=== PATIENT | female | born 1940 | race Caucasian/White ===

== ENCOUNTER 2019-11-30 14:25 | Emergency (ER) | payer OTHER ==
[~2019-11-30] VITALS: Ht 162.6 cm; Wt 51.3 kg
[2019-11-30] MEDS ORDERED: NAPROXEN375 MG PO (15:49)
[2019-11-30] MEDS ORDERED: TRAMADOL 50 MG50 MG PO (15:49)
[2019-11-30 16:25] VITALS: BP 136/69
== END 2019-11-30 16:27 | disposition home or self-care (01) ==
LOC: ER 14:25
DX: S93.402A Sprain of unspecified ligament of left ankle, initial encounter (principal); M18.12 Unilateral primary osteoarthritis of first carpometacarpal joint, left hand; G89.29 Other chronic pain; Z87.891 Personal history of nicotine dependence; Z88.2 Allergy status to sulfonamides; Z88.0 Allergy status to penicillin; X50.1XXA Overexertion from prolonged static or awkward postures, initial encounter; Y93.89 Activity, other specified; Y92.89 Other specified places as the place of occurrence of the external cause; Y99.8 Other external cause status